=== PATIENT | female | born 2005 | race Caucasian/White ===

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

== ENCOUNTER 2024-05-24 07:52 | Emergency (ER) | payer SELFPAY ==
[2024-05-24 08:01] VITALS: BMI 29.0
[2024-05-24 09:01] LABS: HCG,QUALITATIVE URINE Negative
[2024-05-24 09:02] LABS: BASO % 0.5 % (0-2.0); EOS % 0.7 % (0-4.5); HEMATOCRIT 36.9 % (32.4-45.2); LYMPH % 25.2 % (8-40); MCH 29.1 pg (25.7-33.7); MCHC 35.4 g/dl (32.0-36.0); MEAN CELL VOLUME 82.2 fl (80-96); MEAN PLT VOLUME 7.5 fl (7.5-11.1); MONO % 5.3 % (3.8-10.2); NEUT % 68.3 % (42.8-82.8); PLATELET COUNT 331 10^3/uL (134-434); RBC 4.48 M/mm3 (3.60-5.2); RDW 13.6 % (11.6-15.6); WHITE BLOOD COUNT 10.7 K/mm3 (4.0-10.0)
[2024-05-24] MEDS ORDERED: KETOROLAC TROMETHAMINE 30 MG/1 ML VIAL ONE (09:07)
[2024-05-24] MEDS ORDERED: ONDANSETRON 4 MG/2 ML VIAL ONE (09:07)
[2024-05-24] MEDS: ONDANSETRON 4 MG/2 ML VIAL IVPUSH ONE (09:10)
[2024-05-24] MEDS: KETOROLAC TROMETHAMINE 30 MG/1 ML VIAL IVPUSH ONE (09:10)
[2024-05-24 09:11] LABS: URINE APPEARANCE Clear; URINE BILIRUBIN Negative (NEGATIVE); URINE COLOR Yellow; URINE GLUCOSE (UA) Negative (NEGATIVE); URINE KETONE Negative (NEGATIVE); URINE LEUK ESTERASE Negative (NEGATIVE); URINE NITRITE Negative (NEGATIVE); URINE PROTEIN Negative (NEGATIVE); URINE UROBILINOGEN 0.2 mg/dL (0.2-1.0)
[2024-05-24] MEDS: SODIUM CHLORIDE 0.9% 500 ML INFUS.BAG IV ONE (09:12)
[2024-05-24 09:23] LABS: POTASSIUM 3.9 mmol/L (3.5-5.1)
[2024-05-24 09:25] LABS: ALBUMIN 3.5 g/dl (3.4-5.0); CALCIUM 8.3 mg/dL (8.5-10.1)
[2024-05-24 09:26] LABS: BLOOD UREA NITROGEN 9.8 mg/dL (7-18)
[2024-05-24 09:28] LABS: CREATININE 0.8 mg/dL (0.55-1.3)
[2024-05-24 09:30] LABS: BILIRUBIN,TOTAL 0.2 mg/dL (0.2-1)
[2024-05-24 09:35] LABS: TOT PROT 7.3 g/dl (6.4-8.2)
[2024-05-24 13:47] VITALS: BP 119/71; PULSE 78; RESP 16; TEMP 98.6
== END 2024-05-24 13:47 | disposition home or self-care (01) ==
LOC: JER 07:52
PROC: 3E0333Z Introduction of Anti-inflammatory into Peripheral Vein, Percutaneous Approach (ICD-10-PCS; principal; 2024-05-24)
PROC: 3E033GC Introduction of Other Therapeutic Substance into Peripheral Vein, Percutaneous Approach (ICD-10-PCS; 2024-05-24)
DX: R10.32 Left lower quadrant pain (principal); M54.9 Dorsalgia, unspecified; R19.7 Diarrhea, unspecified; R30.0 Dysuria; R11.0 Nausea
CPT/HCPCS: 36415; 74177-TC; 76830-TC; 80053; 81003; 84703; 85025; 87086; 99285-25; Q9967